=== PATIENT | male | born 1990 | race Hispanic/Latino ===

== ENCOUNTER 2018-02-27 12:29 | Emergency (ER) | payer BC, SELFPAY ==
[2018-02-27] MEDS ORDERED: ACETAMINOPHEN 500 MG TAB ONE (13:47)
--- NOTE | 2018-02-27 14:17 | RAD REPORT ---
EXAM DESCRIPTION: RAD - Chest Pa And Lat (2 Views) - 02/27/2018 2:11 pm CLINICAL HISTORY: COUGH Chest pain. COMPARISON: No comparisons FINDINGS: The lungs are clear. The heart is normal in size. No displaced fractures. IMPRESSION: No acute or concerning finding suspected.
--- NOTE | 2018-02-27 14:59 | EDPHYS ---
Physician Documentation [facility] Name: Marky Gould Age: 27 yrs Sex: Male : 1990 Arrival Date: 02/27/2018 Time: 12:32 Bed 26 Private MD: ED Physician Donny Hirsch HPI: 02/27 15:20 This 27 yrs old Male presents to ER via Ambulatory with complaints of Flu snw Symptoms - CONFIRMED. 15:20 The patient reports fever, that was measured at 102 degrees Fahrenheit. Onset: The snw symptoms/episode began/occurred 3 day(s) ago, and became persistent. Associated signs and symptoms: Pertinent positives: cough, decreased appetite, headache, myalgias, sore throat. Severity of symptoms: At their worst the symptoms were moderate. The patient has not experienced similar symptoms in the past. The patient has been recently seen by a physician: The patient has been recently seen at an urgent care, for similar complaints, labs were performed, + influenza. Historical: - Allergies: 12:52 No Known Allergies; aj - Home Meds: 12:52 None [Active]; aj - PMHx: 12:52 None; aj - PSHx: 12:52 None; aj - Immunization history:: Adult Immunizations up to date. - Social history:: Smoking status: Patient/guardian denies using tobacco. - Ebola Screening: : Patient negative for fever greater than or equal to 101.5 degrees Fahrenheit, and additional compatible Ebola Virus Disease symptoms Patient denies exposure to infectious person Patient denies travel to an Ebola-affected area in the 21 days before illness onset No symptoms or risks identified at this time. ROS: 15:16 Eyes: Negative for injury, pain, redness, and discharge. snw 15:16 Neck: Negative for injury, pain, and swelling. 15:16 Cardiovascular: Negative for chest pain, palpitations, and edema, Respiratory: Negative for shortness of breath, wheezing, and pleuritic chest pain, + cough Abdomen/GI: Negative for abdominal pain, nausea, vomiting, diarrhea, and constipation, Back: Negative for injury and pain, : Negative for injury, bleeding, discharge, and swelling, MS/Extremity: Negative for injury and deformity, Skin: Negative for injury, rash, and discoloration. 15:16 Constitutional: Positive for body aches, fever, malaise, poor PO intake. 15:16 ENT: Positive for sore throat. 15:16 Neuro: Positive for headache. Exam: 15:10 Constitutional: This is a well developed, well nourished patient who is awake, alert, snw and in no acute distress. Head/Face: Normocephalic, atraumatic. Eyes: Pupils equal round and reactive to light, extra-ocular motions intact. Lids and lashes normal. Conjunctiva and sclera are non-icteric and not injected. Cornea within normal limits. Periorbital areas with no swelling, redness, or edema. ENT: Nares patent. No nasal discharge, no septal abnormalities noted. Tympanic membranes are normal and external auditory canals are clear. Oropharynx with no redness, swelling, or masses, exudates, or evidence of obstruction, uvula midline. Mucous membranes moist. Neck: Trachea midline, no thyromegaly or masses palpated, and no cervical lymphadenopathy. Supple, full range of motion without nuchal rigidity, or vertebral point tenderness. No Meningismus. Chest/axilla: Normal chest wall appearance and motion. Nontender with no deformity. No lesions are appreciated. 15:10 Abdomen/GI: Soft, non-tender, with normal bowel sounds. No distension or tympany. No guarding or rebound. No evidence of tenderness throughout. Back: No spinal tenderness. No costovertebral tenderness. Full range of motion. Skin: Warm, dry with normal turgor. Normal color with no rashes, no lesions, and no evidence of cellulitis. MS/ Extremity: Pulses equal, no cyanosis. Neurovascular intact. Full, normal range of motion. Neuro: Awake and alert, GCS 15, oriented to person, place, time, and situation. Cranial nerves II-XII grossly intact. Motor strength 5/5 in all extremities. Sensory grossly intact. Cerebellar exam normal. Normal gait. 15:10 Cardiovascular: Rate: tachycardic, Rhythm: regular, Pulses: no pulse deficits are appreciated, Heart sounds: normal. 15:10 Respiratory: the patient does not display signs of respiratory distress, Respirations: normal, Breath sounds: are clear throughout, +cough. Vital Signs: 12:52 BP 140 / 89; Pulse 122; Resp 20; Temp 100.2(O); Pulse Ox 95% on R/A; Weight 133.81 kg; aj Height 6 ft. 4 in. (193.04 cm); 15:00 BP 136 / 78; Pulse 108; Resp 18; Temp 98.9; Pulse Ox 97% on R/A; kr2 12:52 Body Mass Index 35.91 (133.81 kg, 193.04 cm) aj MDM: 14:26 Patient medically screened. snw 15:18 Data reviewed: vital signs, nurses notes. Data interpreted: Pulse oximetry: on room air snw is 95 %. Interpretation: acceptable. Counseling: I had a detailed discussion with the patient and/or guardian regarding: the historical points, exam findings, and any diagnostic results supporting the discharge/admit diagnosis, the presence of at least one elevated blood pressure reading (>120/80) during this emergency department visit, radiology results, the need for outpatient follow up, to return to the emergency department if symptoms worsen or persist or if there are any questions or concerns that arise at home. Special discussion: Based on the history and exam findings, there is no indication for further emergent testing or inpatient evaluation. I discussed with the patient/guardian the need to see the primary care provider for further evaluation of the symptoms. 02/27 12:54 Order name: XRAY Chest Pa And Lat (2 Views); Complete Time: 14:18 aj Administered Medications: 13:42 Drug: Tylenol 1000 mg Route: PO; aj 15:36 Follow up: Response: No adverse reaction; Temperature is decreased kr2 15:06 Drug: Phenergan 25 mg Route: PO; kr2 15:37 Follow up: Response: No adverse reaction kr2 15:07 Drug: Tussionex Pennkinetic ER 5 ml Route: PO; kr2 15:37 Follow up: Response: No adverse reaction kr2 Disposition: 02/27/18 14:58 Discharged to Home. Impression: Influenza due to unidentified influenza virus, Cough. - Condition is Stable. - Discharge Instructions: Fever, Adult, Influenza, Adult, Cough, Adult, Rehydration, Adult. - Prescriptions for Tylenol- Codeine #3 300-30 mg Oral Tablet - take 1 tablet by ORAL route every 6 hours As needed; 16 tablet. promethazine 25 mg Oral Tablet - take 1 tablet by ORAL route every 6 hours As needed; 20 tablet. - Work release form, Medication Reconciliation Form, Thank You Letter, Antibiotic Education, Prescription Opioid Use form. - Follow up: Emergency Department; When: As needed; Reason: Worsening of condition. Follow up: Private Physician; When: 2 - 3 days; Reason: Recheck today's complaints, Continuance of care, Re-evaluation by your physician. Addendum: 03/03/2018 11:00 Co-signature as Attending Physician, Donny Hirsch MD I agree with the assessment and c zhao plan of care. Signatures: Dispatcher [employer] EDSarina Ernandez, RN Donny Winters MD MD cha Therrien, Shelly, TRAINMASTER-C TRAINMASTER-Csnw Ruby Holman RN RN kr2 Corrections: (The following items were deleted from the chart) 02/27 15:37 14:58 02/27/2018 14:58 Discharged to Home. Impression: Influenza due to unidentified kr2 influenza virus; Cough. Condition is Stable. Forms are Medication Reconciliation Form, Thank You Letter, Antibiotic Education, Prescription Opioid Use. Follow up: Emergency Department; When: As needed; Reason: Worsening of condition. Follow up: Private Physician; When: 2 - 3 days; Reason: Recheck today's complaints, Continuance of care, Re-evaluation by your physician. snw
--- NOTE | 2018-02-27 14:59 | ER ---
Nurse's Notes [facility] Name: Marky Gould Age: 27 yrs Sex: Male : 1990 Arrival Date: 02/27/2018 Time: 12:32 Bed 26 Private MD: Diagnosis: Influenza due to unidentified influenza virus;Cough Presentation: 02/27 12:51 Presenting complaint: Patient states: DX with flu today at urgent care and sent to ER aj for chest xray. Transition of care: patient was not received from another setting of care. Onset of symptoms was February 25, 2018. Risk Assessment: Do you want to hurt yourself or someone else? Patient reports no desire to harm self or others. Initial Sepsis Screen: Does the patient meet any 2 criteria? No. Patient's initial sepsis screen is negative. Does the patient have a suspected source of infection? Yes:. Care prior to arrival: None. 12:51 Method Of Arrival: Ambulatory 12:51 Acuity: YESICA 3 aj Triage Assessment: 12:52 General: Appears in no apparent distress. uncomfortable, Behavior is calm, cooperative, aj appropriate for age. Pain: Denies pain. Neuro: Level of Consciousness is awake, alert, obeys commands, Oriented to person, place, time, situation, Appropriate for age. Respiratory: Reports cough that is Airway is patent Respiratory effort is even, unlabored, Respiratory pattern is regular, symmetrical. Derm: Skin is intact, is healthy with good turgor, Skin is pink, warm \T\ dry. normal. Historical: - Allergies: 12:52 No Known Allergies; aj - Home Meds: 12:52 None [Active]; aj - PMHx: 12:52 None; aj - PSHx: 12:52 None; aj - Immunization history:: Adult Immunizations up to date. - Social history:: Smoking status: Patient/guardian denies using tobacco. - Ebola Screening: : Patient negative for fever greater than or equal to 101.5 degrees Fahrenheit, and additional compatible Ebola Virus Disease symptoms Patient denies exposure to infectious person Patient denies travel to an Ebola-affected area in the 21 days before illness onset No symptoms or risks identified at this time. Screenin:30 Abuse screen: Denies threats or abuse. Denies injuries from another. Nutritional kr2 screening: No deficits noted. Tuberculosis screening: No symptoms or risk factors identified. Fall Risk None identified. Assessment: 14:30 General: Appears in no apparent distress. comfortable, well groomed, well developed, kr2 well nourished, Behavior is calm, cooperative, appropriate for age. Pain: Complains of pain in all over Pain does not radiate. Pain currently is 4 out of 10 on a pain scale. Quality of pain is described as aching, Is continuous, Alleviated by rest. Neuro: Level of Consciousness is awake, alert, obeys commands, Oriented to person, place, time, situation, Appropriate for age. Cardiovascular: Capillary refill < 3 seconds in bilateral fingers Patient's skin is warm and dry. Respiratory: Reports cough that is non-productive, persistent Airway is patent Respiratory effort is even, unlabored, Respiratory pattern is regular, symmetrical, Breath sounds are clear bilaterally. GI: Abdomen is flat, non-distended. EENT: Oral mucosa is moist. Reports nasal congestion nasal discharge. Derm: Skin is intact, is healthy with good turgor, Skin is pink, warm \T\ dry. Musculoskeletal: Circulation, motion, and sensation intact. 15:30 Reassessment: Patient appears in no apparent distress at this time. Patient and/or kr2 family updated on plan of care and expected duration. Pain level reassessed. Patient is alert, oriented x 3, equal unlabored respirations, skin warm/dry/pink. Patient states feeling better. Vital Signs: 12:52 BP 140 / 89; Pulse 122; Resp 20; Temp 100.2(O); Pulse Ox 95% on R/A; Weight 133.81 kg; aj Height 6 ft. 4 in. (193.04 cm); 15:00 BP 136 / 78; Pulse 108; Resp 18; Temp 98.9; Pulse Ox 97% on R/A; kr2 12:52 Body Mass Index 35.91 (133.81 kg, 193.04 cm) aj ED Course: 12:32 Patient arrived in ED. sb2 12:52 Triage completed. aj 12:52 Arm band placed on left wrist. Patient placed in waiting room, Patient notified of wait aj time. 13:51 [facility] Hobson [facility]-C [facility]. snw 13:51 Donny Hirsch MD is Attending Physician. snw 14:10 X-ray completed. Patient tolerated procedure well. Patient moved back from radiology. 1 14:11 XRAY Chest Pa And Lat (2 Views) In Process Unspecified. EDMS 14:30 Patient has correct armband on for positive identification. Bed in low position. Call kr2 light in reach. Side rails up X 1. Adult w/ patient. Pulse ox on. NIBP on. 14:59 Ruby Holman, RN is Primary Nurse. kr2 15:35 No provider procedures requiring assistance completed. Patient did not have IV access kr2 during this emergency room visit. Administered Medications: 13:42 Drug: Tylenol 1000 mg Route: PO; aj 15:36 Follow up: Response: No adverse reaction; Temperature is decreased kr2 15:06 Drug: Phenergan 25 mg Route: PO; kr2 15:37 Follow up: Response: No adverse reaction kr2 15:07 Drug: Tussionex Pennkinetic ER 5 ml Route: PO; kr2 15:37 Follow up: Response: No adverse reaction kr2 Outcome: 14:58 Discharge ordered by . jaimie 15:35 Discharged to home via wheelchair, with crutches, with family. kr2 15:35 Condition: good 15:35 Discharge instructions given to patient, family, Instructed on discharge instructions, follow up and referral plans. medication usage, crutch walking, splint care Demonstrated understanding of instructions, follow-up care, medications, crutch walking, splint care, Prescriptions given X 1. 15:37 Patient left the ED. kr2 Signatures: Dispatcher [employer] EDSarina Ernandez RN RN aj Therrien, Shelly, MODULAR HOME CREW MEMBER-C MODULAR HOME CREW MEMBER-Csnw [facility] Ruby Holman, RN RN kr2 Rossy Sheppard 2
[2018-02-27] MEDS ORDERED: HYDROCODONE/CHLORPHEN 5 ML/OSYR ONE (15:11)
[2018-02-27] MEDS ORDERED: PROMETHAZINE 25 MG TABLET ONE (15:11)
== END 2018-02-27 15:37 | disposition home or self-care (01) ==
LOC: ER 12:29
DX: J11.1 Influenza due to unidentified influenza virus with other respiratory manifestations (principal)
CPT/HCPCS: 71046; 99284